=== PATIENT | female | born 1955 | race Caucasian/White ===

== ENCOUNTER 2016-08-10 11:34 | Emergency (ER) | payer MEDICARE, OTHER ==
[2016-08-10 11:34] VITALS: BMI 16.5
[2016-08-10 11:44] VITALS: BP 123/75; PULSE 90; RESP 16; TEMP 98.1; O2SAT 98
--- NOTE | 2016-08-10 12:56 | C.PDOC ---
History Of Present Illness 61 year old patient, with a past medical history of rheumatoid arthritis, gastritis, osteoporosis, kidney stones, and hiatal hernia, presents to the ED complaining of diffuse body aches, lower back and neck pain for the past 3 days. Patient admits her symptoms are similar to previous rheumatoid arthritis exacerbations. Patient takes Prednisone 7 mg daily, and recently started talking 14 mg daily with no relief. Patient denies any falls/injuries, fever, or sensory changes. Time Seen by Provider: 08/10/16 11:47 Chief Complaint (Nursing): Back Pain History Per: Patient History/Exam Limitations: no limitations Onset/Duration Of Symptoms: Days (3) Current Symptoms Are (Timing): Still Present Quality Of Discomfort: "Pain" Severity: Moderate Previous Symptoms: Chronic Pain Associated Symptoms: None Recent travel outside of the [place]: No Past Medical History Reviewed: Historical Data, Nursing Documentation, Vital Signs Vital Signs: Last Vital Signs Temp 98.1 F 08/10/16 11:40 Pulse 90 08/10/16 11:40 Resp 16 08/10/16 11:40 BP 123/75 08/10/16 11:40 Pulse Ox 98 08/10/16 14:37 - Medical History PMH: Arthritis, Gastritis, Hiatal Hernia, Kidney Stones, Osteoporosis, Rheumatoid Arthritis Family History: States: No Known Family Hx - Social History Hx Tobacco Use: No Hx Alcohol Use: No Hx Substance Use: No - Immunization History Hx Tetanus Toxoid Vaccination: No Hx Influenza Vaccination: No Hx Pneumococcal Vaccination: No Review Of Systems Except As Marked, All Systems Reviewed And Found Negative. Constitutional: Positive for: Other (body aches). Negative for: Fever Cardiovascular: Negative for: Chest Pain, Palpitations Respiratory: Negative for: Cough, Shortness of Breath Gastrointestinal: Negative for: Nausea, Vomiting, Abdominal Pain, Diarrhea Musculoskeletal: Positive for: Neck Pain, Back Pain (lower) Neurological: Negative for: Weakness, Numbness Physical Exam - Physical Exam Appears: Non-toxic, Other (mild to moderate distress; tearful) Skin: Warm, Dry, No Rash Head: Atraumatic, Normacephalic Eye(s): bilateral: Normal Inspection Oral Mucosa: Moist Neck: Normal ROM, Supple, Other (diffuse tenderness) Cardiovascular: Rhythm Regular Respiratory: Normal Breath Sounds, No Rales, No Rhonchi, No Wheezing Gastrointestinal/Abdominal: Normal Exam, Bowel Sounds, Soft, No Tenderness Back: No CVA Tenderness, Other (diffuse tenderness to palpation at lumbar region ) Extremity: Normal ROM, Other (MCP joints: bilateral deformity/ulnar deviation at MCP joints ) Neurological/Psych: Oriented x3, Normal Sensation Gait: Steady ED Course And Treatment O2 Sat by Pulse Oximetry: 98 (RA) Pulse Ox Interpretation: Normal Progress Note: Patient given Toradol IM and PO Prednisone. Reevaluation Time: 12:55 Reassessment Condition: Improved (Patient reassessed, is currently resting comfortably and states she is feeling better. 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 She understands she should return to ED if symptoms worsen.) Disposition Counseled Patient/Family Regarding: Studies Performed, Diagnosis, Need For Followup, Rx Given - Disposition Referrals: Lorenzo Cisneros MD [Staff Provider] - Disposition: HOME/ ROUTINE Disposition Time: 12:55 Condition: STABLE Additional Instructions: SEGUIMIENTO CON BOYD DOCTOR EN 1-2 LAWLER, Y CON REUMATOLOGIST DENTRO DE 1 SEMANA USE MEDICAMENTOS SEGN LO DIRECCIONADO- PARA LOS PRXIMOS 3 DATOS CHEKO 40MG PREDNISONE DEVUELVA A LA DENISE DE EMERGENCIA SI LOS SNTOMAS EMPEORARAN FOLLOW UP WITH YOUR DOCTOR IN 1-2 DAYS, AND WITH FINISHER TAILOR APPRENTICE WITHIN 1 WEEK USE MEDICATIONS DIRECTED- FOR THE NEXT 3 DATS TAKE 40MG PREDNISONE RETURN TO EMERGENCY ROOM IF SYMPTOMS WORSEN Prescriptions: Naproxen [Naprosyn Tab] 375 mg PO BID PRN #20 tab PRN Reason: pain predniSONE [predniSONE Tab] 40 mg PO DAILY #6 tab Instructions: Rheumatoid Arthritis (ED) Print Language: LUXEMBOURGISH - POA Present On Arrival: None - Clinical Impression Clinical Impression: Rheumatoid arthritis flare - Scribe Statement The provider has reviewed the documentation as recorded by the Scribcesar Jackson Provider Attestation: All medical record entries made by the Scribe were at my direction and personally dictated by me. I have reviewed the chart and agree that the record accurately reflects my personal performance of the history, physical exam, medical decision making, and the department course for this patient. I have also personally directed, reviewed, and agree with the discharge instructions and disposition.
== END 2016-08-10 13:00 | disposition home or self-care (01) ==
LOC: C.ER 11:34
DX: M06.9 Rheumatoid arthritis, unspecified (principal)
CPT/HCPCS: 96372; 99283; J1885

== ENCOUNTER 2017-10-19 06:10 | Emergency (ER) | payer MEDICARE, OTHER ==
[2017-10-19 06:11] VITALS: BMI 16.5
[2017-10-19 07:22] LABS: BASO # 0.1 K/uL (0.0-0.2); BASO % 1.3 % (0.0-2.0); EOS % 0.3 % (0.0-4.0); LYMPH # 1.3 K/uL (1.0-4.3); LYMPH % 13.2 % (20.0-40.0); MEAN CELL VOLUME 88.8 fL (81.0-99.0); MEAN CORPUSCULAR HEMOGLOBIN 29.6 pg (27.0-31.0); MEAN CORPUSCULAR HGB CONC 33.3 g/dL (33.0-37.0); MEAN PLATELET VOLUME 8.4 fL (7.2-11.7); MONO % 10.2 % (0.0-10.0); NEUT # 7.4 K/uL (1.8-7.0); RBC 4.39 Mil/uL (3.80-5.20); RED CELL DISTRIBUTION WIDTH 16.2 % (11.5-14.5); WHITE BLOOD COUNT 9.9 K/uL (4.8-10.8)
[2017-10-19] MEDS ORDERED: Sodium Chloride 0.9% 1,000 ML IV ONE (07:27)
--- NOTE | 2017-10-19 07:27 | C.PDOC ---
History Of Present Illness 62 y/o female, w/PMhx of gastritis and gastric ulcer( 2 yrs ago), presents to the ER complaining of multiple bouts of vomiting which has been present for the past 5 days. Patient states that she started to vomit clots of blood for the past 2 days. Patient reports that she has nausea, abdominal pain, fever, and headache. Otherwise, patient denies having CP, SOB, cough, and dizziness. Time Seen by Provider: 10/19/17 07:01 Chief Complaint (Nursing): GI Problem History Per: Patient History/Exam Limitations: no limitations Onset/Duration Of Symptoms: Days Current Symptoms Are (Timing): Still Present Severity: Moderate Past Medical History Reviewed: Historical Data, Nursing Documentation, Vital Signs Vital Signs: Last Vital Signs Temp 99.0 F 10/19/17 11:02 Pulse 86 10/19/17 11:02 Resp 16 10/19/17 11:02 BP 95/53 L 10/19/17 11:02 Pulse Ox 99 10/19/17 12:17 - Medical History PMH: Arthritis, Gastritis, Gastrointestinal Ulcer, Hiatal Hernia, Kidney Stones , Osteoporosis, Chronic Kidney Disease, Rheumatoid Arthritis Surgical History: Cholecystectomy Family History: States: No Known Family Hx - Social History Hx Tobacco Use: No Hx Alcohol Use: No Hx Substance Use: No - Immunization History Hx Tetanus Toxoid Vaccination: No Hx Influenza Vaccination: No Hx Pneumococcal Vaccination: No Review Of Systems Except As Marked, All Systems Reviewed And Found Negative. Constitutional: Positive for: Fever. Negative for: Chills Cardiovascular: Negative for: Chest Pain Respiratory: Negative for: Cough, Shortness of Breath Gastrointestinal: Positive for: Nausea, Vomiting, Abdominal Pain Neurological: Positive for: Headache. Negative for: Dizziness Physical Exam - Physical Exam Appears: Non-toxic, No Acute Distress Skin: Normal Color, Warm, Dry Head: Atraumatic, Normacephalic Eye(s): bilateral: Normal Inspection Nose: Normal Oral Mucosa: Moist Neck: Supple Chest: Symmetrical Cardiovascular: Rhythm Regular Respiratory: Normal Breath Sounds, No Rales, No Rhonchi, No Wheezing Gastrointestinal/Abdominal: Soft, Tenderness (diffuse tenderness to entire abdomen), No Guarding, No Rebound Extremity: Normal ROM, Other ((-) pitting edema) Neurological/Psych: Oriented x3, Normal Speech ED Course And Treatment - Laboratory Results Result Diagrams: 10/19/17 07:19 10/19/17 07:19 ECG: Interpreted By Me, Viewed By Me ECG Rhythm: Sinus Rhythm ECG Interpretation: Normal Interpretation Of ECG: NSR with normal axises and no ST/ T wave changes Rate From EC O2 Sat by Pulse Oximetry: 99 (RA) Pulse Ox Interpretation: Normal - CT Scan/US CT - Abd & Pelv. Other Rad Studies (CT/US): Read By Radiologist, Radiology Report Reviewed CT/US Interpretation: PROCEDURE: CT Abdomen and Pelvis with contrast. HISTORY : GI bleeding. COMPARISON: 06/13/2015. TECHNIQUE: CT scan of the abdomen and pelvis was performed after administration of intravenous contrast. Oral contrast was administered. Coronal and sagittal reformatted images were obtained. Contrast dose: 100 mL Visipaque. Radiation dose: Total exam DLP = 258.46 mGy-cm. This CT exam was performed using one or more of the following dose reduction techniques: Automated exposure control, adjustment of the mA and/ or kV according to patient size, and/or use of iterative reconstruction technique. FINDINGS: LOWER THORAX: There is subsegmental atelectasis in the lower lobes. LIVER: The liver is normal in size. There are 2 simple cysts in the right hepatic lobe, the larger measures. 1.9 cm. A tiny low-attenuation area in the left hepatic lobe is too small to characterize by CT criteria. GALLBLADDER AND BILE DUCTS: Surgically absent. Mild diffuse dilatation of the bile duct is in keeping with post cholecystectomy status. PANCREAS: Normal in size with homogeneous enhancement. No gross lesion or ductal dilatation. SPLEEN : Normal in size and appearance. ADRENALS: No discrete nodule. KIDNEYS AND URETERS: Both kidneys are normal in size with homogeneous enhancement. There are multiple simple cysts in both kidneys, the largest in the left upper pole measures 3.2 cm. There is a 2.0 cm high attenuation cyst in the lower pole of the right kidney which appeared high density on the prior noncontrast CT examination and most compatible with a hemorrhagic cyst. No hydronephrosis or nephrolithiasis. VASCULATURE: No aortic aneurysm. BOWEL: There is a small sliding hiatal hernia. There is apparent mild mural thickening at the gastroesophageal junction. The small bowel loops are normal in caliber. No bowel dilatation. There is mild sigmoid diverticulosis and also apparent mild mural thickening in the sigmoid colon with focal segmental narrowing in the mid sigmoid colon (series 2, image 59 and series 601 image 56. APPENDIX: Normal appendix. PERITONEUM: Unremarkable. No free fluid. No free air. LYMPH NODES: Unremarkable. No enlarged lymph nodes. BLADDER: Unremarkable. REPRODUCTIVE : Unremarkable. BONES: There is vertebra plana at L1 with retropulsion of fracture fragment, new since the prior examination. There is diffuse bone demineralization. OTHER FINDINGS: There is redemonstration of a 10 mm nodule posterior to the left lower rectus muscle. Also more inferiorly there is a 1.2 cm nodule posterior to the left lower rectus muscle and anterior to the bladder wall. IMPRESSION: 1. Mild sigmoid diverticulosis. Apparent mild mural thickening in the sigmoid colon is nonspecific and could be related to underdistention or nonspecific infectious/ inflammatory colitis/ diverticulitis. Focal segmental narrowing in the mid sigmoid colon, which again could be related to underdistention or inflammation however annular carcinoma cannot be entirely excluded. Please correlate with endoscopic as clinically indicated. 2. Left lower abdominal and pelvic mesenteric nodules, also seen on the prior examination which may represent benign or malignant nodules. 3. Vertebra plana in the L1 vertebral body, new since the prior examination and could represent osteoporotic or pathologic fracture. Also noted is retropulsion of fracture fragment. A dedicated MRI would be helpful to evaluate for compression on the conus. 4. Small sliding hiatal hernia. Apparent mural thickening at the gastroesophageal junction could be related to underdistention or nonspecific esophagitis. Medical Decision Making Medical Decision Making: Impression: Vomiting, Abdominal Pain R/O GI Bleed, Bowel Obstruction Plan: --Labs --CXR -- IV Fluids --Reglan IV --Pepcid IV --CT - Abd & Pelv. Updates: On re-evaluation, patient feels better. Patient has been discharged and instructed to follow up with PMD. Disposition - Disposition Referrals: [facility] [Outside] [facility] [Outside] Disposition: HOME/ ROUTINE Disposition Time: 12:22 Condition: GOOD Prescriptions: Famotidine [Pepcid] 40 mg PO DAILY #30 tablet Instructions: Gastritis Forms: Gen Discharge Inst Bermudian, [employer] (Serbian) - Clinical Impression Clinical Impression: Gastritis - Scribe Statement The provider has reviewed the documentation as recorded by the Flavio Gongora Provider Attestation: All medical record entries made by the Scribe were at my direction and personally dictated by me. I have reviewed the chart and agree that the record accurately reflects my personal performance of the history, physical exam, medical decision making, and the department course for this patient. I have also personally directed, reviewed, and agree with the discharge instructions and disposition.
[2017-10-19] MEDS ORDERED: Iohexol 240 (50 ml) PO ONE (07:29)
[2017-10-19 07:35] LABS: ALB/GLOB RATIO 1.5 (1.0-2.1); CALCIUM 8.8 mg/dl (8.6-10.4); GFR AFRICAN-AMERICAN > 60; GFR NON-AFRICAN AMERICAN > 60; LIPASE 59 U/L (23-300)
[2017-10-19 07:44] LABS: ALT/SGPT 22 U/L (9-52); AST/SGOT 37 U/L (14-36); BLOOD UREA NITROGEN 12 mg/dL (7-17)
[2017-10-19] MEDS ORDERED: Sodium Chloride 0.9% 1,000 ML ONE (08:25)
[2017-10-19] MEDS ORDERED: Iohexol 240 (50 ml) ONE (08:25)
[2017-10-19 08:52] LABS: PROTHROMBIN TIME 10.9 SECONDS (9.7-12.2)
[2017-10-19] MEDS ORDERED: Iodixanol 320 MG/ML 100 ML BOTTLE IV ONE (09:39)
[2017-10-19 10:01] LABS: SQUAMOUS EPITHIAL < 1 /hpf (0-5); URINE BILIRUBIN NEGATIVE (NEGATIVE); URINE BLOOD NEGATIVE (NEGATIVE); URINE CLARITY Clear (Clear); URINE COLOR Yellow (YELLOW); URINE GLUCOSE (UA) NORMAL (Normal); URINE LEUKOCYTE ESTERASE NEG Leu/uL (Negative); URINE PROTEIN NEGATIVE (NEGATIVE); URINE UROBILINOGEN NORMAL mg/dL (0.2-1.0)
[2017-10-19 10:04] LABS: HCG,QUALITATIVE URINE NEGATIVE (NEGATIVE)
--- NOTE | 2017-10-19 11:51 | CT ---
PROCEDURE: CT Abdomen and Pelvis with contrast HISTORY: GI bleeding COMPARISON: 06/13/2015. TECHNIQUE: CT scan of the abdomen and pelvis was performed after administration of intravenous contrast. Oral contrast was administered. Coronal and sagittal reformatted images were obtained. Contrast dose: 100 mL Visipaque Radiation dose: Total exam DLP = 258.46 mGy-cm. This CT exam was performed using one or more of the following dose reduction techniques: Automated exposure control, adjustment of the mA and/or kV according to patient size, and/or use of iterative reconstruction technique. FINDINGS: LOWER THORAX: There is subsegmental atelectasis in the lower lobes. LIVER: The liver is normal in size. There are 2 simple cysts in the right hepatic lobe, the larger measures 1.9 cm. A tiny low-attenuation area in the left hepatic lobe is too small to characterize by CT criteria. GALLBLADDER AND BILE DUCTS: Surgically absent. Mild diffuse dilatation of the bile duct is in keeping with post cholecystectomy status PANCREAS: Normal in size with homogeneous enhancement. No gross lesion or ductal dilatation. SPLEEN: Normal in size and appearance. ADRENALS: No discrete nodule. KIDNEYS AND URETERS: Both kidneys are normal in size with homogeneous enhancement. There are multiple simple cysts in both kidneys, the largest in the left upper pole measures 3.2 cm. There is a 2.0 cm high attenuation cyst in the lower pole of the right kidney which appeared high density on the prior noncontrast CT examination and most compatible with a hemorrhagic cyst. No hydronephrosis or nephrolithiasis. VASCULATURE: No aortic aneurysm. BOWEL: There is a small sliding hiatal hernia. There is apparent mild mural thickening at the gastroesophageal junction. The small bowel loops are normal in caliber. No bowel dilatation. There is mild sigmoid diverticulosis and also apparent mild mural thickening in the sigmoid colon with focal segmental narrowing in the mid sigmoid colon (series 2, image 59 and series 601 image 56. APPENDIX: Normal appendix. PERITONEUM: Unremarkable. No free fluid. No free air. LYMPH NODES: Unremarkable. No enlarged lymph nodes. BLADDER: Unremarkable. REPRODUCTIVE: Unremarkable. BONES: There is vertebra plana at L1 with retropulsion of fracture fragment, new since the prior examination. There is diffuse bone demineralization. OTHER FINDINGS: There is redemonstration of a 10 mm nodule posterior to the left lower rectus muscle. Also more inferiorly there is a 1.2 cm nodule posterior to the left lower rectus muscle and anterior to the bladder wall. IMPRESSION: 1. Mild sigmoid diverticulosis. Apparent mild mural thickening in the sigmoid colon is nonspecific and could be related to underdistention or nonspecific infectious/ inflammatory colitis/ diverticulitis. Focal segmental narrowing in the mid sigmoid colon, which again could be related to underdistention or inflammation however annular carcinoma cannot be entirely excluded. Please correlate with endoscopic as clinically indicated. 2. Left lower abdominal and pelvic mesenteric nodules, also seen on the prior examination which may represent benign or malignant nodules. 3. Vertebra plana in the L1 vertebral body, new since the prior examination and could represent osteoporotic or pathologic fracture. Also noted is retropulsion of fracture fragment. A dedicated MRI would be helpful to evaluate for compression on the conus. 4. Small sliding hiatal hernia. Apparent mural thickening at the gastroesophageal junction could be related to underdistention or nonspecific esophagitis.
[2017-10-19 12:28] VITALS: BP 108/64; PULSE 84; RESP 18; TEMP 98.9; O2SAT 100
--- NOTE | 2017-10-19 12:52 | RAD ---
PROCEDURE: CHEST RADIOGRAPH, 1 VIEW HISTORY: Abdominal pain COMPARISON: None available. FINDINGS: LUNGS: The lungs are hyperinflated and there is peribronchial thickening with chronic changes in both lungs. No focal consolidation. PLEURA: No pneumothorax or pleural fluid seen. CARDIOVASCULAR: Normal. OSSEOUS STRUCTURES: No significant abnormalities. VISUALIZED UPPER ABDOMEN: Normal. OTHER FINDINGS: Surgical clips in the right upper quadrant are related to prior cholecystectomy. IMPRESSION: No active pulmonary disease. COPD.
--- NOTE | 2017-10-21 12:19 | CARD ---
APPROVED REPORT EKG Measurement Heart [id number] <Conclusion> Normal sinus rhythm Normal ECG
== END 2017-10-19 12:28 | disposition home or self-care (01) ==
LOC: C.ER 06:10
DX: K29.70 Gastritis, unspecified, without bleeding (principal); N18.9 Chronic kidney disease, unspecified
CPT/HCPCS: 71045; 74177; 80053; 81001; 83690; 84484; 84703; 85025; 85610; 85730; 86850; 86900; 93005; 96361; 96374; 96375; 99285; G0328; J2765; J7030; Q9966; Q9967

== ENCOUNTER 2018-03-05 20:08 | Emergency (ER) | payer MEDICARE, OTHER ==
[2018-03-05] MEDS ORDERED: Oxycodone/Acetaminophen 5/325 mg Tab PO STA (20:16)
[2018-03-05 20:19] VITALS: BMI 19.5
[2018-03-05] MEDS ORDERED: Oxycodone/Acetaminophen 5/325 mg Tab ONE (20:27)
[2018-03-05] MEDS ORDERED: Morphine 4 MG/ML VIAL ONE ×2 (20:30→23:00)
--- NOTE | 2018-03-05 21:45 | C.PDOC ---
History Of Present Illness 62 y/o female brought in by family for evaluation s/p fall. Patient accidentally rolled out of bed landing on her left side. She reports hitting her left forehead, left elbow, left hip, left knee, and left foot. Now complaining of pain to each of those areas. Otherwise she denies any chest pain, SOB, LOC, or other injuries. - HPI Time Seen by Provider: 03/05/18 20:15 Chief Complaint (Nursing): Trauma History Per: Patient History/Exam Limitations: no limitations Onset/Duration Of Symptoms: Mins Injury Occurred (Timing): Just Before Arrival Location Of Injury: Left: Elbow, Foot, Head, Hip, Knee Past Medical History Reviewed: Historical Data, Nursing Documentation, Vital Signs Vital Signs: Last Vital Signs Temp 98.9 F 03/05/18 20:19 Pulse 117 H 03/05/18 20:19 Resp 22 03/05/18 20:19 BP 126/78 03/05/18 20:19 Pulse Ox 100 03/05/18 20:19 - Medical History PMH: Arthritis, Gastritis, Gastrointestinal Ulcer, Hiatal Hernia, Kidney Stones, Osteoporosis, Chronic Kidney Disease, Rheumatoid Arthritis Surgical History: Cholecystectomy Family History: States: No Known Family Hx - Social History Hx Tobacco Use: No Hx Alcohol Use: No Hx Substance Use: No - Immunization History Hx Tetanus Toxoid Vaccination: No Hx Influenza Vaccination: No Hx Pneumococcal Vaccination: No Review Of Systems Constitutional: Negative for: Fever, Chills Cardiovascular: Negative for: Chest Pain Respiratory: Negative for: Shortness of Breath Gastrointestinal: Negative for: Abdominal Pain Musculoskeletal: Positive for: Arm Pain (left elbow pain), Leg Pain (left hip pain, left knee pain), Foot Pain (left foot pain), Other (left forehead contusion) Skin: Negative for: Lesions Neurological: Negative for: Weakness, Numbness, Incoordination, Change in Speech, Confusion, Altered Mental Status, Dizziness Physical Exam - Physical Exam Appears: Non-toxic, In Acute Distress (moderate painful distress) Skin: Warm, Dry Head: Normacephalic, Swelling (contusion to left forehead) Eye(s): bilateral: Normal Inspection, PERRL, EOMI Oral Mucosa: Moist Neck: Normal ROM, Supple Chest: Symmetrical, No Tenderness, No Ecchymosis Cardiovascular: Rhythm Regular, No Murmur Respiratory: Normal Breath Sounds, No Accessory Muscle Use Gastrointestinal/Abdominal: Soft, No Tenderness Extremity: Tenderness (with contusion/ecchymoses to left hip, left lateral knee, left lateral foot, left elbow), Deformity (Finger deformities consistent w/ rheumatoid arthritis), Other (Decreased ROM secondary to pain) Pulses: Left Radial: Normal, Right Radial: Normal, Left Dorsalis Pedis: Normal, Right Dorsalis Pedis: Normal Neurological/Psych: Oriented x3, Normal Speech, Normal Cranial Nerves, Normal Motor, Normal Sensation ED Course And Treatment O2 Sat by Pulse Oximetry: 100 (RA) Pulse Ox Interpretation: Normal Medical Decision Making Medical Decision Making: Initial Plan: --CT Head --Left knee x-ray --Left elbow x-ray --Left foot x-ray --Left hip/pelvic x-ray --Percocet 1 tab PO --Morphine 6 mg IM fall w contusions and NO Fractures L elbow with [address] L elbow, NO new fx prefers to d/c home and f/u with her Ortho tomorrow stable gait, multiple family @ bedside to care for her. Disposition Doctor Will See Patient In The: Office Counseled Patient/Family Regarding: Studies Performed, Diagnosis - Disposition Disposition: HOME/ ROUTINE Disposition Time: 00:38 Condition: GOOD Forms: [employer] (Mongolian) - Clinical Impression Clinical Impression: Contusion - Scribe Statement The provider has reviewed the documentation as recorded by the Scribe (Britt Fontenot) Provider Attestation: All medical record entries made by the Scribe were at my direction and personally dictated by me. I have reviewed the chart and agree that the record accurately reflects my personal performance of the history, physical exam, medical decision making, and the department course for this patient. I have also personally directed, reviewed, and agree with the discharge instructions and disposition.
[2018-03-06 00:54] VITALS: BP 128/72; PULSE 82; RESP 20; TEMP 98; O2SAT 97
--- NOTE | 2018-03-06 07:33 | CT ---
Date of service: 03/05/2018 PROCEDURE: CT HEAD WITHOUT CONTRAST. HISTORY: fall, L frontal contusion COMPARISON: None available. TECHNIQUE: Axial computed tomography images were obtained through the head/brain without intravenous contrast. Radiation dose: Total exam DLP = 1029.91 mGy-cm. This CT exam was performed using one or more of the following dose reduction techniques: Automated exposure control, adjustment of the mA and/or kV according to patient size, and/or use of iterative reconstruction technique. FINDINGS: HEMORRHAGE: No intracranial hemorrhage. BRAIN: No mass effect or edema. [id number] volume loss. Mild periventricular and subcortical white matter changes likely due to chronic microvascular ischemic disease. VENTRICLES: Unremarkable. No hydrocephalus. CALVARIUM: Unremarkable. PARANASAL SINUSES: Unremarkable as visualized. No significant inflammatory changes. MASTOID AIR CELLS: Unremarkable as visualized. No inflammatory changes. OTHER FINDINGS: None. IMPRESSION: No evidence of acute intracranial hemorrhage mass effect or midline shift. Volume loss and presumed mild chronic microvascular white matter ischemic disease. Preliminary report was submitted to the referring physician contains concordant findings.
--- NOTE | 2018-03-06 10:10 | RAD ---
Date of service: 03/05/2018 PROCEDURE: Left Knee Radiographs. HISTORY: Pain. COMPARISON: None. FINDINGS: BONES: There is diffuse bone demineralization. There is no acute displaced fracture or bone destruction. Bone alignment is normal. There is an old fracture deformity in the proximal fibula. JOINTS: There is mild tricompartmental degenerative osteoarthrosis with reduced joint spaces, marginal osteophytes and tibial spiking, worse in the medial compartment. JOINT EFFUSION: None. OTHER FINDINGS: There are advanced atherosclerotic vascular calcifications.. IMPRESSION: No acute fracture or dislocation. There is mild tricompartmental degenerative osteoarthrosis with reduced joint spaces, marginal osteophytes and tibial spiking, worse in the media compartment.
--- NOTE | 2018-03-06 10:46 | RAD ---
Date of service: 03/05/2018 PROCEDURE: Left Foot Radiographs. HISTORY: Left foot contusion, fall COMPARISON: None. FINDINGS: BONES: There is severe diffuse bone demineralization. There is no acute displaced fracture. There is an old fracture deformity in the 3rd metatarsal. There is a large dorsal calcaneal enthesophyte. JOINTS: There is erosion in the neck of the metatarsal with severe reduced joint space at the 5th metatarsophalangeal joint. There is mild degenerative osteoarthrosis in the remaining metatarsophalangeal and interphalangeal joints. SOFT TISSUES: There is moderate periarticular soft tissue swelling at the 5th MTP joint. OTHER FINDINGS: There are advanced atherosclerotic vascular calcifications. There is IMPRESSION: No acute displaced fracture or dislocation. Suspect erosive osteoarthrosis at the 5th MTP joint with periarticular soft tissue swelling.
--- NOTE | 2018-03-06 11:03 | CT ---
Date of service: 03/05/2018 PROCEDURE: CT of the left elbow without IV contrast HISTORY: fall, ? elbow fx/disloc, prior fx/disloc x 2 COMPARISON: Comparison is made with the previous x-ray of the left elbow dated 03/05/2018. TECHNIQUE: Axial and reformatted coronal and sagittal CT images of the left elbow were obtained without IV contrast administration. 3D reformatted images were also obtained. Total exam DLP 141.23 FINDINGS: There is market deformity of the left elbow joint. There are old fracture noted at the distal left humerus and proximal left radius/radial head and in the olecranon process of the left ulna. There is questionable acute fracture at the proximal olecranon process. There is remodeling of the olecranon process and at epicondyle of the distal left humerus noted. There are small ossicles/loose body noted in the left elbow joint. There are also well corticated ossicles around the left elbow. There is a moderate left elbow joint effusion and mild soft tissue swelling. IMPRESSION: Marked deformity and remodeling of the left elbow suggestive of old trauma and old fractures. Possible acute nondisplaced fracture at the proximal portion of the olecranon process. Multiple loose bodies and well corticated ossicles noted at and adjacent to the left elbow joint is space. [id number] left elbow joint effusion and [id number] soft tissue edema around the left elbow. Preliminary report was submitted by [facility] Rad[facility].
--- NOTE | 2018-03-06 11:09 | RAD ---
Date of service: 03/05/2018 PROCEDURE: Radiographs of the left elbow. HISTORY: fall, deform COMPARISON: No prior. FINDINGS: BONES: There is acute displaced fracture in the proximal radius. There is an acute transverse nondisplaced fracture in the olecranon process. There is diffuse bone demineralization. JOINTS: There is probable dislocation of the radiohumeral joint. There is severe degenerative osteoarthrosis in the elbow joint with large osteophytes and reduced joint space. SOFT TISSUES: Moderate periarticular soft tissue swelling. JOINT EFFUSION: There is a large joint effusion. OTHER FINDINGS: None IMPRESSION: Acute displaced fracture in the radial head. Question of radial humeral joint dislocation. Acute nondisplaced fracture in the olecranon process. 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 Large joint effusion and moderate periarticular soft tissue swelling.
--- NOTE | 2018-03-06 11:42 | RAD ---
PROCEDURE: Left Hip X-ray Radiographs. HISTORY: fall, contusion COMPARISON: None. FINDINGS: BONES: There is diffuse bone demineralization. There is no acute displaced fracture or bone destruction. Bone alignment is normal. JOINTS: The hip joint spaces are preserved. SOFT TISSUES: Normal. OTHER FINDINGS: There are advanced atherosclerotic vascular calcifications. IMPRESSION: No acute displaced fracture or dislocation. Please note occult fractures cannot be excluded on plain radiographs. If there is a persistent clinical concern, an MRI of the hip may be performed for further evaluation.
== END 2018-03-06 00:53 | disposition home or self-care (01) ==
LOC: C.ER 20:08
DX: S00.83XA Contusion of other part of head, initial encounter (principal); S90.32XA Contusion of left foot, initial encounter; W06.XXXA Fall from bed, initial encounter; M06.9 Rheumatoid arthritis, unspecified; M81.0 Age-related osteoporosis without current pathological fracture
CPT/HCPCS: 70450; 73080; 73200; 73502; 73562; 73630; 96372; 96374; 99283; J2270